=== PATIENT | male | born 1945 | race Caucasian/White ===

== ENCOUNTER 2016-08-13 05:35 | Inpatient (IN) | payer OTHER ==
[2016-07-26 11:55] VITALS: BMI 34.0
--- NOTE | 2016-07-26 12:29 | PAT Medication Instructions ---
Service Date Jul 26, 2016. Current Home Medication List Ascorbic Acid (Vitamin C), 500 MG PO QAM Aspirin (Aspirin Ec), 81 MG PO QAM Atenolol (Tenormin), 50 MG PO QPM Calcium W/ Vitamins D & K (Calcium + D + K), 1 TAB PO QAM Cholecalciferol (Vitamin D3), 5,000 UNITS PO QAM Fish Oil (Jansen-3), 2 CAP PO QAM Lisinopril (Zestril), 10 MG PO QPM Misc Natural Products (Total Cardio Health Formu), 1 TAB PO QPM Multivitamin (Multivitamin), 1 TAB PO QAM Sertraline (Zoloft), 200 MG PO QAM Simvastatin (Zocor), 20 MG PO QPM Triamterene/Hctz (Dyazide 37.5MG/25MG), 1 TAB PO QAM Ubiquinol (Ubiquinol), 300 MG PO QAM Medication Instructions For Your Scheduled Surgery - Hold the following medications 2 weeks prior to surgery: Fish Oil (Jansen-3), 2 CAP PO QAM Misc Natural Products (Total Cardio Health Formu), 1 TAB PO QPM Ubiquinol (Ubiquinol), 300 MG PO QAM - Hold the following medications evening prior to surgery: Lisinopril (Zestril), 10 MG PO QPM - Hold the following medications the morning of surgery: Triamterene/Hctz (Dyazide 37.5MG/25MG), 1 TAB PO QAM Multivitamin (Multivitamin), 1 TAB PO QAM Cholecalciferol (Vitamin D3), 5,000 UNITS PO QAM Calcium W/ Vitamins D & K (Calcium + D + K), 1 TAB PO QAM Ascorbic Acid (Vitamin C), 500 MG PO QAM - Take the following medications the morning of surgery with a sip of water: Sertraline (Zoloft), 200 MG PO QAM Aspirin (Aspirin Ec), 81 MG PO QAM - Take the following medications as scheduled the night before surgery: Simvastatin (Zocor), 20 MG PO QPM Atenolol (Tenormin), 50 MG PO QPM If you have any questions please call us at [phone] or [phone] ( [place]) or [phone]
[2016-07-26 13:01] LABS: BASO % 0.3 %; BASO ABS # 0.02 K/uL (0-0.2); COMPLETE YES; EOS % 0.9 %; HEMATOCRIT 42.4 % (42-52); IG% 0.3 %; LYMPH % 22.8 %; LYMPH ABS # 1.76 K/uL (1.2-3.4); MEAN CELL VOLUME 88.7 fL (80-100); MEAN CORPUSCULAR HEMOGLOBIN 31.2 pg (25-34); MEAN CORPUSCULAR HGB CONC 35.1 g/dl (32-36); MEAN PLATELET VOLUME 9.5 fL (7.4-10.4); MONO % 9.1 %; NEUT % 66.6 %; PLATELET COUNT 248 K/uL (130-400); RED BLOOD COUNT 4.78 M/uL (4.7-6.1); WHITE BLOOD COUNT 7.73 K/uL (4.8-10.8)
[2016-07-26 13:04] LABS: URINE APPEARANCE CLEAR (CLEAR); URINE BILIRUBIN NEG (NEG); URINE COLOR DK YELLOW; URINE NITRITE NEG (NEG); URINE PH 5.5 (4.5-7.5); URINE SPECIFIC GRAVITY 1.022 (1.000-1.030); UROBILINOGEN NEG (NEG); ZZUR CULT IF INDIC CLEAN CATCH NO
[2016-07-26 13:09] LABS: MANUAL MICROSCOPIC REQUIRED? NO; REVIEW REQ? NO
[2016-07-26 13:18] LABS: PARTIAL THROMBOPLASTIN RATIO 1.1; PROTHROMBIN TIME (PATIENT) 10.4 SECONDS (9.0-12.0)
--- NOTE | 2016-07-26 13:22 | DIAGNOSTIC IMAGING REPORT ---
CHEST PREADMISSION(PA/LAT) CLINICAL HISTORY: PAT preoperative evaluation COMPARISON STUDY: 08/31/2014 FINDINGS: The bones soft tissues and hemidiaphragms are normal. The cardiomediastinal silhouette is normal. The lungs are clear. The pulmonary vasculature is normal. IMPRESSION: Negative chest. Electronically signed by: Antonio Ring M.D. 07/26/2016 1:20 PM Dictated Date/Time: 07/26/2016 1:20 PM
[2016-07-26 13:24] LABS: BUN/CREATININE RATIO 17.1 (10-20); CREATININE 1.1 mg/dl (0.60-1.40); POTASSIUM 4.2 mmol/L (3.5-5.1)
--- NOTE | 2016-08-10 15:00 | HISTORY & PHYSICAL EXAMINATION ---
DATE OF ADMISSION: 08/13/2016 CHIEF COMPLAINT: Left hip pain. HISTORY OF PRESENT ILLNESS: Mr. Clancy is a 71-year-old male with a 6-month history of pain in his left hip. The patient rates his pain a 9/10. He has pain with his daily activities. He has limited standing and walking tolerance. Pain is worse with weightbearing. The patient is ambulating with a cane. He has had narcotics and home exercise program with minimal relief. He has failed conservative treatment and is scheduled for left hip replacement. PAST MEDICAL HISTORY: Hypertension, hypercholesterolemia and anxiety. He denies heart disease, diabetes or DVT. PAST SURGICAL HISTORY: Right total hip arthroplasty and cataract extraction. SOCIAL HISTORY: The patient drinks 1 alcoholic drink per week. He smokes 1 daily cigar. He lives in a 2-emilie home. He is and retired. FAMILY HISTORY: Negative for DVT. MEDICATIONS: Triamterene/HCTZ 37.5/25 mg daily, sertraline 100 mg 2 daily, atenolol 50 mg daily, lisinopril 10 mg daily, simvastatin 20 mg daily, aspirin 81 mg daily, vitamin D3 5000 international units, omega 2 tablets daily, vitamin C 500 mg daily, multivitamin, Total CardioCover, calcium citrate and ubiquinol 300 mg. ALLERGIES: PENICILLIN. REVIEW OF SYSTEMS: See HPI. Ten other systems reviewed, all negative. PHYSICAL EXAMINATION: VITAL SIGNS: Height 5 feet 9 inches, weight 232 pounds, BMI is 34. GENERAL: This is a well-developed, well-nourished male who is alert and oriented x3. Mood and affect are appropriate. HEENT: Normocephalic, atraumatic. Mucous membranes are moist and intact. NECK: Supple without lymphadenopathy. HEART: Regular rate and rhythm without murmurs, rubs or gallops. LUNGS: Clear to auscultation without wheezes or rhonchi. ABDOMEN: Soft and nontender. Bowel sounds are equal and active. EXTREMITIES: No ecchymosis, redness or warmth. Log roll of the hip reproduces pain in the groin. Range of motion is decreased. He is neurovascularly intact with +5/5 strength. He walks with an antalgic gait. X-RAY EXAMINATION: AP and lateral views show joint space narrowing and osteophyte formation of the left hip. IMPRESSION: Degenerative joint disease, left hip. PLAN: The patient will be admitted for a left total hip arthroplasty. We will plan on aspirin for DVT prophylaxis. The patient will likely have radiation ordered postoperatively for heterotopic ossification. PCP is Dr. Isis Romero in [place].
[~2016-08-13] VITALS: Ht 175.3 cm; Wt 108.4 kg
[2016-08-13] VITALS (9 sets, daily range): BP systolic 105–155; BP diastolic 63–80; PULSE 65–82; TEMP 36.5–36.9; O2SAT 93–99; Ht 175.3 cm; Wt 108.4 kg
[~2016-08-13 05:35] MED LIST: ASCO1CAP3 PO; ASPI81TA28 PO; ATEN50TA8 PO; CALC750T PO; CHOL20007 PO; LISI-461 PO; MISCCAP PO; MULT-506 PO; OMEG10007 PO; SERT-234 PO; SIMV20TA2 PO; TRIA37.5 PO; UBIQ1CAP8 PO
[2016-08-13] MEDS ORDERED: VANCOMYCIN INJ 400 MG in NSS 100ML IR SCH (06:00)
[2016-08-13] MEDS ORDERED: DEXAMETHASONE 4 MG TAB PO SCH (06:00)
[2016-08-13] MEDS ORDERED: GABAPENTIN 300 MG CAP PO SCH (06:00)
[2016-08-13] MEDS ORDERED: CLINDAMYCIN 600 MG/54 ML D5W 54 ML IV SCH (06:00)
[2016-08-13] MEDS ORDERED: LACTATED RINGER'S 1000ML 1,000 ML IV SCH (06:00)
[2016-08-13] MEDS ORDERED: ACETAMINOPHEN 500 MG TAB PO SCH (06:00)
[2016-08-13] MEDS ORDERED: POLYMYXIN B SULFATE 100,000 UNITS in NSS 100ML IR SCH (06:00)
[2016-08-13] MEDS ORDERED: CeleBREX 200 MG CAP PO SCH (06:00)
[2016-08-13] MEDS ORDERED: ROPIVACAINE 5MG/ML 30 ML 150 MG, BUPIVACAINE/EPINEPHR 0.5% MPF 30 ML, KETOROLAC TROMETH... INFIL SCH ×7 (06:00)
[2016-08-13] MEDS ORDERED: LACTATED RINGER'S 1000ML IV SCH (06:00)
[2016-08-13] MEDS ORDERED: METOCLOPRAMIDE HCL 10 MG TAB PO SCH (06:00)
[2016-08-13] MEDS ORDERED: FAMOTIDINE 20 MG TAB PO SCH (06:00)
[2016-08-13] MEDS ORDERED: OXYCODONE HCL 10 MG TABCR (OXYCONTIN) PO SCH (06:00)
[2016-08-13] MEDS: TRANEXAMIC ACID INJ 1,000 MG in SODIUM CHLORIDE 0.9% 100ML 100 ML IV SCH ×2 (06:32→07:58)
[2016-08-13] MEDS ORDERED: BUPIVACAINE 0.5 % 5 MG/1 ML PF 10ML VIAL ONE (06:32)
[2016-08-13] MEDS ORDERED: BACITRACIN 50000 UNIT VIAL ONE (06:35)
[2016-08-13] MEDS ORDERED: POVIDONE-IODINE OP SOLN 30 ML BTL ONE (06:35)
[2016-08-13] MEDS ORDERED: ORTHO JOINT ANESTHETIC ONE (06:35)
--- NOTE | 2016-08-13 06:42 | History & Physical Bridge Note ---
H&P Re-Evaluation Bridge Note: I have examined the patient, reviewed the History & Physical and in the interval since the performance of the History & Physical I have noted the following changes of clinical significance: No changes noted
[2016-08-13] MEDS ORDERED: FENTANYL CITRATE INJ 50 MCG/1 ML 2 ML VIAL ONE (06:44)
[2016-08-13] MEDS ORDERED: MIDAZOLAM HCL 1 MG/ML 2ML VIAL ONE ×2 (06:44)
[2016-08-13] MEDS ORDERED: EpHEDrine SULFATE INJ 50 MG/ML AMP IV PRN (07:15)
[2016-08-13] MEDS ORDERED: IPRATROPIUM BROMIDE NEB SOLN 0.02% 2.5 ML VIAL INH PRN (07:15)
[2016-08-13] MEDS ORDERED: FENTANYL CITRATE INJ 50 MCG/1 ML 2 ML VIAL IV PRN (07:15)
[2016-08-13] MEDS ORDERED: ATROPINE SULFATE 0.1 MG/ML 5ML SYR IV PRN (07:15)
[2016-08-13] MEDS ORDERED: MoRPHine SULFATE 10 MG/ML CARP/VIAL IV PRN (07:15)
[2016-08-13] MEDS ORDERED: ALBUTEROL 0.083% NEBU SOLN 3 ML VIAL INH PRN (07:15)
[2016-08-13] MEDS ORDERED: MEPERIDINE HCL 25 MG/ML CARP IV PRN (07:15)
[2016-08-13] MEDS ORDERED: ONDANSETRON INJ 2 MG/ML 2 ML VIAL IV PRN ×2 (07:15→08:30)
[2016-08-13] MEDS ORDERED: EpHEDrine SULFATE 50MG/5ML SYR ONE (08:21)
[2016-08-13] MEDS ORDERED: LIDOCAINE HCL 2% 2 ML VIAL (20MG/ML) ONE (08:21)
[2016-08-13] MEDS ORDERED: PROPOFOL IV EMULSION 10 MG/ML 20 ML VIAL IV ONE (08:21)
--- NOTE | 2016-08-13 08:24 | [facility] Post Operative Brief Note ---
Immediate Operative Summary Operative Date Aug 13, 2016. Pre-Operative Diagnosis Left Hip Degenerative Joint Disease Post-Operative Diagnosis Left Hip Degenerative Joint Disease Procedure(s) Performed Left Total Hip Arthroplasty, Direct Anterior Approach Surgeon Dr. Benjamín Collazo Stone Trimmer Surgeon(s) Fiona Stock PA-C Estimated Blood Loss 75 mL Findings DJD Specimens A: Left Femoral Head Complication(s) None Disposition Recovery Room / PACU
[2016-08-13] MEDS ORDERED: MAGNESIUM HYDROXIDE SUSP 30 ML UDC PO PRN (08:30)
[2016-08-13] MEDS ORDERED: METOCLOPRAMIDE HCL INJ 5 MG/ML 2 ML VIAL IV PRN (08:30)
[2016-08-13] MEDS ORDERED: ZOLPIDEM TARTRATE 5 MG TAB PO PRN (08:30)
[2016-08-13] MEDS ORDERED: BISACODYL 10 MG SUPP PR PRN (08:30)
[2016-08-13] MEDS ORDERED: SOD PHOSPHATE/SOD BIPHOSPHATE ENEMA 132 ML BTL PR PRN (08:30)
[2016-08-13] MEDS ORDERED: MoRPHine SULFATE 2 MG/ML CARP IV PRN (08:30)
[2016-08-13] MEDS ORDERED: TRAMADOL HCL 50 MG TAB PO PRN (08:30)
[2016-08-13] MEDS ORDERED: ALUMINUM/MAGNESIUM/SIMETH (MAALOX MAX) 30 ML UDC PO PRN (08:30)
[2016-08-13] MEDS ORDERED: DiphenhydrAMINE HCL 50 MG/ML VIAL IV PRN (08:30)
--- NOTE | 2016-08-13 08:46 | DIAGNOSTIC IMAGING REPORT ---
LEFT HIP UNILATERAL 1 VIEW CLINICAL HISTORY: LT ANTERIOR TOTAL COMPARISON STUDY: None. FINDINGS: Single fluoroscopic spot image. 9.9 seconds of fluoroscopy time. There is a left total hip arthroplasty. The hardware is intact. No fracture or dislocation. IMPRESSION: Fluoroscopy provided for left total hip arthroplasty. Electronically signed by: Cristhian Julien M.D. 08/13/2016 8:45 AM Dictated Date/Time: 08/13/2016 8:44 AM
--- NOTE | 2016-08-13 09:31 | DIAGNOSTIC IMAGING REPORT ---
AP PELVIS, CROSSTABLE LATERAL LEFT HIP History: Left total hip arthroplasty. Degenerative arthritis. Postop. FINDINGS: The patient is status post a left total hip arthroplasty. The hardware is intact. No fracture or dislocation. Skin mateusz and surgical drains are in place. Evidence for prior right total hip arthroplasty. IMPRESSION: Left total hip arthroplasty. No evidence for hardware complication. Electronically signed by: Cristhian Julien M.D. 08/13/2016 9:29 AM Dictated Date/Time: 08/13/2016 9:29 AM
--- NOTE | 2016-08-13 09:35 | Anesthesiology Progress Note ---
Anesthesia Post Op Note Date & Time Aug 13, 2016 at 09:35 Vital Signs Pain Intensity: 0 Vital Signs Past 12 Hours Date Time Temp Pulse Resp B/P Pulse Ox O2 Delivery O2 Flow Rate FiO2 08/13/16 09:25 36.4 71 18 128/82 100 Nasal Cannula 2 08/13/16 09:15 36.4 73 18 135/72 100 Nasal Cannula 2 08/13/16 09:05 82 16 132/60 100 Nasal Cannula 2 08/13/16 08:55 77 16 123/67 100 Mask 10 08/13/16 08:47 36.4 76 16 99/71 100 Mask 10 08/13/16 05:54 36.5 65 20 155/71 96 Room Air Notes Mental Status: alert / awake / arousable, participated in evaluation Pt Amnestic to Procedure: Yes Nausea / Vomiting: adequately controlled Pain: adequately controlled Airway Patency, RR, SpO2: stable & adequate BP & HR: stable & adequate Hydration State: stable & adequate Neuraxial Anesthesia: was administered, sensory block is resolving Anesthetic Complications: no major complications apparent
[2016-08-13] MEDS ORDERED: CLINDAMYCIN 600 MG/54 ML D5W IV SCH (12:00)
[2016-08-13] MEDS: D5W AND 1/2NSS + 20MEQ KCL 1,000 ML IV SCH ×2 (12:54→21:42)
[2016-08-13] MEDS: CLINDAMYCIN IV 600 MG in DEXTROSE 5% ADD-VANTAGE 50ML 50 ML IV SCH ×2 (12:56→18:13)
[2016-08-13] MEDS: ASCORBIC ACID 500 MG TAB PO SCH (12:56)
[2016-08-13] MEDS: MULTIVITAMIN TAB PO SCH (12:56)
[2016-08-13] MEDS: CALCIUM 600MG + VIT D 400 IU TAB PO SCH (12:57)
[2016-08-13] MEDS: KETOROLAC TROMETHAMINE 15 MG/ML VIAL IV. SCH ×3 (12:57→23:27)
[2016-08-13] MEDS: ACETAMINOPHEN 500 MG TAB PO SCH ×2 (12:58→21:42)
--- NOTE | 2016-08-13 13:01 | Radiation Oncology Consult ---
Radiation Oncology Consult Date / Reason Aug 13, 2016. Physicians Radiation Oncologist: Dr. Mirian Stein Surgeon: Dr. Collazo Diagnosis (1) Post-operative state Permanent Comment: s/p left hip arthroplasty - high risk for developing heterotopic ossification Last Edited By: Mirian Stein on Aug 13, 2016 12:41 History of Present Illness I am seeing Mr. Clancy in consultation at the request of Dr. Benjamín Collazo. The patient's was present at bedside during the consultation. ECOG PS: 3 Mr. Clancy is a 71-year-old gentleman who was recently admitted to the hospital for an elective left total hip arthroplasty. The patient underwent a left total hip arthroplasty by Dr. Benjamín Collazo on 08/13/2016. At the time of the procedure, Dr. Collazo did have some concern for potential development of heterotopic ossification. We have been asked to evaluate the patient for prophylactic radiation therapy to the left hip to prevent development of heterotopic ossification. Currently, the patient is doing relatively well. He does feel somewhat tired after his procedure. He states his pain is well-controlled. Past History Past Medical/Surgical History: Arthritis, Anxiety, High Cholesterol, Hypertension, Depression Social History Smoking Status: Former Smoker Hx Tobacco Use In Past Year?: No (QUIT CIGARS LAST MONTH) Do You Dip or Chew Tobacco: No Hx Alcohol Use: Yes (1 A WEEK) Hx Substance Use : No Allergies Coded Allergies: Penicillins (Verified Allergy, Unknown, HIVES/GENERALIZED SWELLING, 08/13/16 ) Home Medications Scheduled Ascorbic Acid (Vitamin C), 500 MG PO QAM Aspirin (Aspirin Ec), 81 MG PO QAM Atenolol (Tenormin), 50 MG PO QPM Calcium W/ Vitamins D & K (Calcium + D + K), 1 TAB PO QAM Cholecalciferol (Vitamin D3), 5,000 UNITS PO QAM Fish Oil ([place]-3), 2 CAP PO QAM Lisinopril (Zestril), 10 MG PO QPM Misc Natural Products (Total Cardio Health Formu), 1 TAB PO QPM Multivitamin (Multivitamin), 1 TAB PO QAM Sertraline (Zoloft), 200 MG PO QAM Simvastatin (Zocor), 20 MG PO QPM Triamterene/Hctz (Dyazide 37.5MG/25MG), 1 TAB PO QAM Ubiquinol (Ubiquinol), 300 MG PO QAM Review of Systems Ear/Hearing: Ear Side: Left Hearing Ability: Hard of Hearing Hearing Aid: None Edema: Present?: No Pain Management Pain Duration: february 2016 Side: Left Patient Preferred Pain Scale: 0 - 10 Initial Pain Intensity: 0.0 Pain Description: Burning, Radiating, Sharp, Tightness, Soreness, Throbbing Physical Exam Height: 5 (Feet) 9 (Inches) 175.3 (Centimeters) 1.75 (Meters) Weight: 238 (Pounds) 15.7 (Ounces) 108.400 (Kilograms) 783528.00 (Grams) Date Time Temp Pulse Resp B/P Pulse Ox O2 Delivery O2 Flow Rate FiO2 08/13/16 11:30 36.5 71 16 119/71 98 Nasal Cannula 2.0 08/13/16 10:35 69 16 130/76 99 Nasal Cannula 2.0 08/13/16 10:05 70 16 146/80 99 Nasal Cannula 2.0 08/13/16 09:35 96 Nasal Cannula 2.0 08/13/16 09:35 36.9 73 16 116/74 96 Nasal Cannula 2.0 08/13/16 09:35 Nasal Cannula 08/13/16 09:25 36.4 71 18 128/82 100 Nasal Cannula 2 08/13/16 09:15 36.4 73 18 135/72 100 Nasal Cannula 2 08/13/16 09:05 82 16 132/60 100 Nasal Cannula 2 08/13/16 08:55 77 16 123/67 100 Mask 10 08/13/16 08:47 36.4 76 16 99/71 100 Mask 10 08/13/16 05:54 36.5 65 20 155/71 96 Room Air General Appearance: WD/WN, no apparent distress Head: normocephalic, atraumatic ENT: normal ENT inspection Neck: supple, no adenopathy Respiratory/Chest: chest non-tender, lungs clear, normal breath sounds, no respiratory distress Cardiovascular: regular rate, rhythm, no edema, no gallop, no JVD, no murmur Neurologic/Psych: alert, oriented x 3 Additional Exam Comments: Limited exam of extremities/musculoskeletal due to pain from surgery. Laboratory Labortaory Results: were reviewed, and no pertinent findings Imaging Imaging studies: were reviewed, and no pertinent findings Imaging Comments LEFT HIP UNILATERAL 1 VIEW - 08/13/2016 CLINICAL HISTORY: LT ANTERIOR TOTAL COMPARISON STUDY: None. FINDINGS: Single fluoroscopic spot image. 9.9 seconds of fluoroscopy time. There is a left total hip arthroplasty. The hardware is intact. No fracture or dislocation. IMPRESSION: Fluoroscopy provided for left total hip arthroplasty. Assessment & Recommendations Mr. Clancy is a 71-year-old gentleman who recently underwent a left total hip arthroplasty underneath the supervision of Dr. Collazo who recommended consideration for prophylactic radiation therapy to prevent the development of heterotopic ossification in the left hip region. We are now seeing the patient in consultation discuss the role of radiation therapy. Today, we did discuss options for prevention of heterotopic ossification including observation, high-dose NSAIDs, and radiation therapy. We then went into further discussion regarding the role of radiation therapy. I did explain to the patient that prophylactic radiation therapy is not a guarantee for preventing development of heterotopic ossification. We did also explained that radiation therapy must be completed within 72 hours from surgery. The patient has elected to undergo prophylactic radiation therapy. We will bring the patient down for CT simulation today and deliver the single fraction of radiation therapy tomorrow prior to patient discharge. We have explained the indications, alternatives, benefits, risks and side effects of radiation therapy. We have explained the most common side effects including but are not limited to skin erythema, skin break down, hair loss, fibrosis, adhesion development, radiation pneumonitis, rib and bone fracture, heart failure and heart disease, esophagitis, bowel obstruction, wound dehiscence, decreased range of motion, urinary symptoms, thyroid disorders, mucositis, nauesea, vomiting, diarrhea, anemia, fatigue and development of secondary malignancy. We also discussed that male patients may have issues with erections (potency) and infertility issues depending on their age and area of treatment. We have explained the CT simulation process and treatment planning. We explained what to expect before, during and after treatment on a regular basis. The patient understands and would be willing to consent to treatment. The patient and family had multiple questions which were answered to their full satisfaction. Thank you for allowing us to participate in the care of this patient. This chart was completed in part utilizing Expert Speech Voice Recognition software. Attempts were made to minimize the grammatical errors, random word insertions, pronoun errors and incomplete sentences. Any formal questions or concerns about the content, text or information contained within the body of this dictation should be directly addressed to the provider for clarification. Mirian Stein MD Department of Radiation Oncology [facility] and Deidra Michaels [facility] Total Time In Consultation I spent 20 minutes examining and counseling the patient. I spent 15 minutes completing this note. Copy To Benjamín Collazo M.D.
[2016-08-13] MEDS ORDERED: TRANEXAMIC ACID INJ 1,000 MG in SODIUM CHLORIDE 0.9% 100ML 100 ML IV ONE (15:00)
[2016-08-13] MEDS: ASPIRIN 81 MG ECTAB PO SCH (20:32)
[2016-08-13] MEDS: SENNA 8.6 MG TAB PO SCH (20:32)
[2016-08-13] MEDS: SIMVASTATIN 20 MG TAB PO SCH (20:32)
[2016-08-13] MEDS: LISINOPRIL 10 MG TAB PO SCH (20:33)
[2016-08-14] VITALS (7 sets, daily range): BP systolic 95–142; BP diastolic 49–73; PULSE 64–71; TEMP 36.5–37; O2SAT 94–98
--- NOTE | 2016-08-14 02:49 | OPERATIVE REPORT ---
DATE OF OPERATION: 08/13/2016 PREOPERATIVE DIAGNOSIS: Degenerative arthritis, left hip. POSTOPERATIVE DIAGNOSIS: Same. PROCEDURE: Left total hip replacement. SURGEON: Benjamín Collazo MD. FIRE SPRINKLER SERVICE TECHNICIAN: PETROS Beasley. ANESTHESIA: Spinal. BLOOD LOSS: 75 mL. REPLACEMENT FLUIDS: 1800 mL of crystalloid. DRAINS: Hemovacs x1. CULTURES: None. COMPLICATIONS: None. COMPONENTS USED: [employer] hip system: Acetabulum size 54, femur size 8 high offset, femoral head 0, neck length 36 mm. NOTE: PETROS Beasley was present and assisted throughout due to the complicated nature of this case. She helped with preparation and set up, first assisted throughout and personally closed the muscle fascia, subcutaneous and skin layers and applied the postoperative dressing. DESCRIPTION OF PROCEDURE: Following satisfactory spinal, the patient was supine. The left leg was placed in the traction device, the right leg in the well leg harris. The left leg was prepared with ChloraPrep and draped sterilely. Following a surgical time-out, an anterior approach was performed in the interval between the sartorius and tensor muscles. The circumflex femoral vessels were identified and ligated. An anterior capsulotomy was performed exposing the arthritic femoral neck and head. The circumflex femoral vessels were identified and ligated. An anterior capsulotomy and the femoral neck and head were trimmed. The femoral head was removed. The acetabular self-retaining retractor was placed. Acetabular reaming was completed and under fluoroscopic guidance, a 54 shell was impacted and secured with a dome screw. Local anesthetic and irrigation were placed. The poly liner was placed. Attention was turned to the femur. The femur was placed in a position of external rotation, extension and adduction. Femoral canal was prepared up to the size 8. A trial reduction with a 0 neck length head using fluoroscopy showed good fit and fill of the proximal canal and mosque of leg lengths using fluoroscopic landmarks. The hip was dislocated. The trial component was removed. The final implant was placed and fluoroscopy confirmed the position. A Betadine soak was performed. After 5 minutes, the Betadine was irrigated. The capsule was closed with 1-0 Vicryl interrupted. The muscle fascia after a drain was placed with a running suture of 1 Vicryl. The subcutaneous tissues were closed with 2-0 Vicryl and the skin with a running subcuticular stitch of 3-0 V-Loc. Dermabond and a dry dressing were applied. The patient was returned to his bed in stable condition. I attest to the content of the Intraoperative Record and any orders documented therein. Any exceptio ns are noted below.
[2016-08-14] MEDS: ACETAMINOPHEN 500 MG TAB PO SCH ×3 (05:40→21:59)
[2016-08-14] MEDS: KETOROLAC TROMETHAMINE 15 MG/ML VIAL IV. SCH ×4 (05:41→23:38)
[2016-08-14 06:51] LABS: BASO % 0.1 %; BASO ABS # 0.01 K/uL (0-0.2); COMPLETE YES; HEMATOCRIT 33.3 % (42-52); IG% 0.3 %; LYMPH % 8.4 %; LYMPH ABS # 0.99 K/uL (1.2-3.4); MEAN CELL VOLUME 87.6 fL (80-100); MEAN CORPUSCULAR HEMOGLOBIN 31.6 pg (25-34); MEAN PLATELET VOLUME 9.2 fL (7.4-10.4); MONO % 11.3 %; NEUT % 79.9 %; PLATELET COUNT 215 K/uL (130-400); WHITE BLOOD COUNT 11.82 K/uL (4.8-10.8)
[2016-08-14 07:15] LABS: CALCIUM 8.3 mg/dl (8.5-10.1); CREATININE 0.98 mg/dl (0.60-1.40); POTASSIUM 4.2 mmol/L (3.5-5.1)
[2016-08-14] MEDS: D5W AND 1/2NSS + 20MEQ KCL 1,000 ML IV SCH (07:30)
--- NOTE | 2016-08-14 07:43 | Anesthesiology Progress Note ---
Anesthesia Post Op Note Date & Time Aug 14, 2016 at 07:43 Vital Signs Pain Intensity: 0.0 Vital Signs Past 12 Hours Date Time Temp Pulse Resp B/P Pulse Ox O2 Delivery O2 Flow Rate FiO2 08/14/16 07:21 36.5 66 19 122/68 98 Room Air 08/14/16 03:45 36.5 64 16 95/49 94 Room Air 08/13/16 22:50 36.7 78 18 105/63 96 Room Air 08/13/16 20:30 82 121/70 Notes Mental Status: alert / awake / arousable, participated in evaluation Pt Amnestic to Procedure: Yes Nausea / Vomiting: adequately controlled Pain: adequately controlled Airway Patency, RR, SpO2: stable & adequate BP & HR: stable & adequate Hydration State: stable & adequate Anesthetic Complications: no major complications apparent
[2016-08-14] MEDS: MULTIVITAMIN TAB PO SCH (09:02)
[2016-08-14] MEDS: CALCIUM 600MG + VIT D 400 IU TAB PO SCH (09:02)
[2016-08-14] MEDS: SERTRALINE HCL 100 MG TAB PO SCH (09:02)
[2016-08-14] MEDS: PANTOprazole SOD 40 MG TAB PO SCH (09:03)
[2016-08-14] MEDS: CHOLECALCIFEROL 1000 INTER.UNIT TAB PO SCH (09:04)
[2016-08-14] MEDS: ASCORBIC ACID 500 MG TAB PO SCH (09:04)
[2016-08-14] MEDS: ASPIRIN 81 MG ECTAB PO SCH ×2 (09:05→21:01)
[2016-08-14] MEDS: TRIAMTERENE/HCTZ 37.5/25MG CAP PO SCH (09:05)
--- NOTE | 2016-08-14 09:49 | Orthopedic Progress Note ---
Orthopedic Progress Note Date of Service Aug 14, 2016. Subjective Post OP Day: 1 Reports: feeling well, Denies: SOB, calf pain, chest pain, light headedness, nausea / vomiting Objective calves soft nontender, N/V intact, hip located, dressing C/D/I, A&O x3, toes mobile, hemovac drainage (465/100CC PER SHIFT) Date Time Temp Pulse Resp B/P Pulse Ox O2 Delivery O2 Flow Rate FiO2 08/14/16 08:56 Room Air 08/14/16 07:21 36.5 66 19 122/68 98 Room Air 08/14/16 03:45 36.5 64 16 95/49 94 Room Air 08/13/16 22:50 36.7 78 18 105/63 96 Room Air 08/13/16 20:30 82 121/70 08/13/16 19:30 Room Air 08/13/16 15:26 36.5 73 18 113/64 93 Room Air 08/13/16 12:37 73 16 146/79 08/13/16 11:30 36.5 71 16 119/71 98 Nasal Cannula 2.0 08/13/16 10:35 69 16 130/76 99 Nasal Cannula 2.0 08/13/16 10:05 70 16 146/80 99 Nasal Cannula 2.0 Laboratory Results 24 Hours: Test 08/14/16 06:20 White Blood Count 11.82 K/uL Red Blood Count 3.80 M/uL Hemoglobin 12.0 g/dL Hematocrit 33.3 % Mean Corpuscular Volume 87.6 fL Mean Corpuscular Hemoglobin 31.6 pg Mean Corpuscular Hemoglobin Concent 36.0 g/dl Platelet Count 215 K/uL Mean Platelet Volume 9.2 fL Neutrophils (%) (Auto) 79.9 % Lymphocytes (%) (Auto) 8.4 % Monocytes (%) (Auto) 11.3 % Eosinophils (%) (Auto) 0.0 % Basophils (%) (Auto) 0.1 % Neutrophils # (Auto) 9.45 K/uL Lymphocytes # (Auto) 0.99 K/uL Monocytes # (Auto) 1.34 K/uL Eosinophils # (Auto) 0.00 K/uL Basophils # (Auto) 0.01 K/uL Assessment & Plan Assessment: POD#1 SP LEFT LISA, DIRECT ANTERIOR Plan: HISTORY OF HETEROTOPIC BONE- HAD SIMULATION YESTERDAY. PLANNING RADIATION TREATMENT TODAY. Inhouse Planning Pain Management: Celebrex, PO Tylenol, Oxy IR DVT Prophylaxis: TEDs, SCDs, ASA Discharge Planning Discharge Planning: home with home health ([facility] HAS NO STAFF FOR HIS AREA. WILL NEED ALTERNATIVE AGENCY. LIKELY [facility] HOME WEDS AFTER RADIATION THERAPY TODAY.)
[2016-08-14] MEDS: OXYCODONE HCL IR 5 MG TAB (IMMEDIATE RELEASE) PO PRN (18:18)
[2016-08-14] MEDS: SIMVASTATIN 20 MG TAB PO SCH (21:00)
[2016-08-14] MEDS: LISINOPRIL 10 MG TAB PO SCH (21:01)
[2016-08-14] MEDS: SENNA 8.6 MG TAB PO SCH (21:02)
[2016-08-15] MEDS: KETOROLAC TROMETHAMINE 15 MG/ML VIAL IV. SCH (05:42)
[2016-08-15] MEDS: ACETAMINOPHEN 500 MG TAB PO SCH (05:42)
[2016-08-15] MEDS: OXYCODONE HCL IR 5 MG TAB (IMMEDIATE RELEASE) PO PRN (05:44)
--- NOTE | 2016-08-15 07:49 | Orthopedic Progress Note ---
Orthopedic Progress Note Date of Service Aug 15, 2016. Subjective Post OP Day: 2 Reports: feeling well, Denies: SOB, calf pain, chest pain, light headedness, nausea / vomiting Objective calves soft nontender, N/V intact, incision C/D/I, A&O x3, toes mobile Date Time Temp Pulse Resp B/P Pulse Ox O2 Delivery O2 Flow Rate FiO2 08/14/16 23:15 36.6 71 16 114/70 Room Air 95.0 08/14/16 20:57 64 125/72 08/14/16 20:05 Room Air 08/14/16 15:03 37.0 70 18 102/57 97 08/14/16 11:15 36.8 69 17 114/69 96 Room Air 08/14/16 10:43 68 97 08/14/16 08:56 Room Air Assessment & Plan Assessment: POD#2 SP LEFT LISA, DIRECT ANTERIOR Plan: HISTORY OF HETEROTOPIC BONE- HAD RADIATION THERAPY YESTERDAY Inhouse Planning Pain Management: Celebrex, PO Tylenol, Oxy IR DVT Prophylaxis: TEDs, SCDs, ASA Discharge Planning Discharge Planning: home with home health ([facility] TODAY)
--- NOTE | 2016-08-15 07:51 | Discharge Instructions ---
Discharge Instructions Date of Service Aug 15, 2016. Admission Reason for Admission: Left Hip Degenerative Arthritis Discharge Discharge Diagnosis / Problem: SP LEFT LISA Discharge Goals Goal(s): Decrease discomfort, Improve function, Increase independence Activity Recommendations Activity Limitations: per Instructions/Follow-up section . Instructions / Follow-Up Instructions / Follow-Up ACTIVITY RECOMMENDATIONS: SELF CARE INSTRUCTIONS AFTER TOTAL HIP REPLACEMENT : Direct Anterior Approach Until the incision and soft tissues around your hip have healed, there is a possibility that the hip prosthesis could dislocate. A. Hip flexion ( Up & Down out of chair or steps ) may be difficult. This is normal. B. Numbness in front of the thigh is also normal for a few weeks. C. Use hand rails when walking on stairs. D. Wear low heeled shoes with non-slip soles. E. Be sure that your floors are free of things that could trip you - throw rugs , electrical cords, small objects. Avoid wet and waxed floors, especially with crutches and canes. F. Try to walk several times a day with rest periods between. G. Continue with all the exercises taught to you in the hospital. Again, make walking a part of your daily routine. SPECIAL CARE INSTRUCTIONS: VERY IMPORTANT TO READ AND REVIEW A. You may still be at risk for phlebitis and blood clots. 1. Wear surgical stockings (FELISHA hose) for 2 weeks after surgery to improve circulation and reduce swelling. 2. Take Aspirin 81mg twice daily for 4 weeks or as directed by your doctor. This is your blood thinner. 3. High risk patients may be prescribed a stronger blood thinner if necessary. 4. If you are on Coumadin normally, your family doctor/soaking room operator should monitor your blood work. Expect a phone call the day of or the day after bloodwork is drawn to adjust your dosage. B. You must take antibiotics before having dental work, bladder, bowel and other surgery. Your doctor will provide you with a permanent card to carry describing precautions. C. Call [facility] [place] if you have a fever, redness or swelling around the incision, cloudy drainage from incision, or sudden increase in pain in your hip, not relieved by your regular pain medication. D. Please call the office at if you have any concerns or questions about your operation or recovery. * YOU MAY SHOWER, NO TUB BATHS UNTIL CLEARED BY YOUR DOCTOR. - Keep an extra close eye on the top portion of your incision. Be sure to keep clean & dry. * WEAR FELISHA HOSE 20 HOURS PER DAY FOR 2 WEEKS. * YOU MAY PROGRESS FROM A WALKER, TO A CANE, TO INDEPENDENT AT YOUR OWN PACE. * MOST PATIENTS WILL HAVE HOME NURSING FOR THERAPY. IF YOU DECIDE TO DO OUTPATIENT PHYSICAL THERAPY, PLEASE SCHEDULE THIS 3 TIMES PER WEEK. * DERMABOND Prineo- This is a mesh tape dressing that is covered with glue. It should remain in place until the incision is properly healed, usually 10-14 days. This dressing is designed to naturally slough off. You may trim the excess mesh tape as it peels off. Incision may be briefly wet in a shower. Dry immediately by blotting with a clean, dry towel. Do not bath or swim until instructed by your doctor. Do not scratch, rub, or pick at the dressing. Do not apply any topical ointments or lotions until dressing is completely removed and/or instructed by your doctor. There may be a small piece of suture material at one end of your incision. Do not pull or trim this. If it is bothersome or catching on clothing, you may cover it with a band-aid. FOLLOW UP VISIT: If appointment is not already scheduled: Please call [facility] [place] to make a follow-up appointment for 2 weeks after your surgery at . Current Hospital Diet Patient's current hospital diet: Regular Diet Discharge Diet Recommended Diet: Regular Diet Procedures Procedures Performed: Left Total Hip Arthroplasty, Direct Anterior Approach Pending Studies Studies pending at discharge: no Medical Emergencies . Who to Call and When: Medical Emergencies: If at any time you feel your situation is an emergency, please call 911 immediately. . Non-Emergent Contact Non-Emergency issues call your: Surgeon . "Provider Documentation" section prepared by Fiona Stock. VTE Core Measure Inpt VTE Proph given/why not?: Other Anticoagulation, T.E.D. Stockings, SCD's [place] Drug Monitoring Program Search Results: patient reviewed within database, no issues identified
[2016-08-15] MEDS ORDERED: RXC5 PO (07:55)
[2016-08-15] MEDS ORDERED: SNK PO (07:55)
[2016-08-15] MEDS ORDERED: CLB200 PO (07:55)
[2016-08-15] MEDS ORDERED: ASPI81TA28 PO (07:55)
[2016-08-15] MEDS ORDERED: ACET-1138 PO (07:55)
[2016-08-15 07:59] VITALS: BP 120/80; PULSE 60; TEMP 36.6; O2SAT 95
[2016-08-15] MEDS: CALCIUM 600MG + VIT D 400 IU TAB PO SCH (09:04)
[2016-08-15] MEDS: ASCORBIC ACID 500 MG TAB PO SCH (09:05)
[2016-08-15] MEDS: ASPIRIN 81 MG ECTAB PO SCH (09:05)
[2016-08-15] MEDS: PANTOprazole SOD 40 MG TAB PO SCH (09:05)
[2016-08-15] MEDS: MULTIVITAMIN TAB PO SCH (09:05)
[2016-08-15] MEDS: SERTRALINE HCL 100 MG TAB PO SCH (09:06)
[2016-08-15] MEDS: CHOLECALCIFEROL 1000 INTER.UNIT TAB PO SCH (09:06)
[2016-08-15] MEDS: TRIAMTERENE/HCTZ 37.5/25MG CAP PO SCH (09:07)
[2016-08-15 10:02] VITALS: O2SAT 95
[2016-08-15 11:48] VITALS: BP 118/74; PULSE 64; TEMP 36.4; O2SAT 95
[2016-08-15] MEDS ORDERED: CeleBREX 200 MG CAP PO SCH (21:00)
--- NOTE | 2016-08-20 12:18 | DISCHARGE SUMMARY ---
DISCHARGE DIAGNOSIS: Degenerative joint disease, left hip. SECONDARY DIAGNOSIS: None. CONSULTS: Dr. Law. COMPLICATIONS: None. PROCEDURE: The patient underwent a left total hip arthroplasty, direct anterior approach with Dr. Collazo on for 08/13/2016. BRIEF HISTORY: Please see previously dictated history and physical. HOSPITAL SUMMARY: The patient was admitted on the above day for the above procedure. Procedure went without complication. Postop day 1, the patient was feeling well without complaints. He denied chest pain or shortness of breath. Vital signs were stable. He was afebrile. Dressing was clean, dry and intact. He was neurovascularly intact. Calves were soft and nontender. Hemovac drained 465 and 100 mL per shift. Hemoglobin was 12.0. The patient had simulation for his radiation the previous day. He was planning on a treatment dose later this afternoon. He tolerated physical therapy. Postop day 2, the patient was improving. He denied chest pain or shortness of breath. Vital signs were stable. He was afebrile. He tolerated the radiation. He continued to progress with physical therapy and was discharged to home later that day in stable condition. For further review please see the chart. Lab, x-ray data and discharge instructions as per chart.
--- NOTE | 2016-08-24 09:24 | Radiation Onc End of Treatmnt ---
End of Treatment Documentation Date Aug 24, 2016. Diagnosis (1) Post-operative state Stage: Not Applicable Permanent Comment: s/p left hip arthroplasty - high risk for developing heterotopic ossification Status post single fraction radiation therapy for prevention of heterotopic bone formation to the left hip received 750 cGy Last Edited By: Lauren Sanz on Aug 24, 2016 09:28 History We are seeing Mr. Clancy in consultation at the request of Dr. Benjamín Collazo. The patient's was present at bedside during the consultation. ECOG PS: 3 Mr. Clancy is a 71-year-old gentleman who was recently admitted to the hospital for an elective left total hip arthroplasty. The patient underwent a left total hip arthroplasty by Dr. Benjamín Collazo on 08/13/2016. At the time of the procedure, Dr. Collazo did have some concern for potential development of heterotopic ossification. We have been asked to evaluate the patient for prophylactic radiation therapy to the left hip to prevent development of heterotopic ossification. Currently, the patient is doing relatively well. He does feel somewhat tired after his procedure. He states his pain is well-controlled. Physics Course Treatment Site [employer] Start Date End Date Elapsed Days # TX Daily Dose (cGy) Total Dose (cGy) C1- Lt Hip Parallel Opposed 15X 08/14/2016 08/14/2016 1 1 750 750 Do documented final doses agree with prescribed doses? Yes If not, explain: Is patients chart complete and accurate? Yes Additional Notes He tolerated his single dose of radiation therapy well. He was seen postoperatively. He was brought to our office and underwent CT simulation. The following day he had the radiation treatment. He'll continue follow-up with Dr. Collazo and his primary care physician. He may call our office if he has any questions or concerns post therapy. Pain Management He had pain prior to surgery. He was given postop meds for control of pain after discharge. This was done through orthopedics. Copies To Benjamín Collazo M.D.; Isis Romero M.D.
== END 2016-08-15 13:06 | disposition home health service (06) | DRG 470 ==
LOC: ENRESERVDT → ENRESERVTM → C.ACU 05:35 → C.3E 06:30
PROVIDERS: ADMIT Orthopaedic Surgery; ATTEND Orthopaedic Surgery
PROC: 0SRB0JZ Replacement of Left Hip Joint with Synthetic Substitute, Open Approach (ICD-10-PCS; principal; 2016-08-13 07:00)
DX: M16.12 Unilateral primary osteoarthritis, left hip (principal); I10 Essential (primary) hypertension; M89.352 Hypertrophy of bone, left femur; E78.00 Pure hypercholesterolemia, unspecified; F17.290 Nicotine dependence, other tobacco product, uncomplicated; Z88.0 Allergy status to penicillin; F32.9 Major depressive disorder, single episode, unspecified; J84.10 Pulmonary fibrosis, unspecified; Z96.641 Presence of right artificial hip joint